=== PATIENT | male | born 1945 | race Caucasian/White ===

== ENCOUNTER 2024-03-04 05:29 | Day surgery (SDC) | payer MEDICARE ==
[2024-03-03 11:44] VITALS: BMI 27.6
[2024-03-04] MEDS ORDERED: SUGAMMADEX SODIUM 200 MG/2 ML VIAL ONE (06:39)
[2024-03-04] MEDS ORDERED: Rocuronium Bromide 10 MG/ML (10ML VIAL) ONE (06:39)
[2024-03-04] MEDS ORDERED: Dexmedetomidine 200 MCG/2 ML VIAL ONE (06:39)
[2024-03-04] MEDS ORDERED: Dexamethasone 20 MG/5 ML VIAL ONE (06:39)
[2024-03-04] MEDS ORDERED: Ondansetron PF 4 MG/2 ML Vial ONE (06:39)
[2024-03-04] MEDS ORDERED: Lidocaine 1% PF 5 ML VIAL ONE (06:39)
[2024-03-04] MEDS ORDERED: fentaNYL 50 mcg/mL 1 mL Vial ONE (06:40)
[2024-03-04] MEDS ORDERED: PROPOFOL 20 ML ONE (06:40)
[2024-03-04] MEDS ORDERED: EPINEPHrine 1 MG/ML VIAL ONE (06:42)
== END 2024-03-04 08:55 | disposition home or self-care (01) ==
LOC: CSHSDC 05:29
PROVIDERS: ATTEND Otolaryngology Otolaryngic Allergy
PROC: 0CBM8ZX Excision of Pharynx, Via Natural or Artificial Opening Endoscopic, Diagnostic (ICD-10-PCS; principal; 2024-03-04)
DX: C01 Malignant neoplasm of base of tongue (principal); I10 Essential (primary) hypertension; E78.00 Pure hypercholesterolemia, unspecified; E11.9 Type 2 diabetes mellitus without complications; Z79.84 Long term (current) use of oral hypoglycemic drugs; Z79.899 Other long term (current) drug therapy; Z87.891 Personal history of nicotine dependence
CPT/HCPCS: 31536; J0171; J1100; J2405; J2704; J3010; 88305; 88331; 88341; 88342